=== PATIENT | male | born 1975 ===

== ENCOUNTER → 2022-10-23 | Outpatient (RCR) | payer OTHER | END | disposition home or self-care (01) | LOC: MKS.ESL.OT | DX: Z86.718 Personal history of other venous thrombosis and embolism (principal) ==

== ENCOUNTER → 2022-11-23 | Outpatient (RCR) | payer OTHER | END | disposition home or self-care (01) | LOC: MKS.ESL.OT | DX: M79.89 Other specified soft tissue disorders (principal) ==

== ENCOUNTER 2022-12-14 13:00 | Outpatient (RCR) | payer OTHER | END 2022-12-23 | disposition home or self-care (01) | LOC: MKS.ESL.OT | DX: I82.A11 Acute embolism and thrombosis of right axillary vein (principal); Z87.2 Personal history of diseases of the skin and subcutaneous tissue ==

== ENCOUNTER 2023-07-11 14:29 | Outpatient (RCR) | payer OTHER | END 2023-07-11 14:30 | LOC: MKS.ESL.OT 14:29 | DX: L03.113 Cellulitis of right upper limb (principal); I82.A11 Acute embolism and thrombosis of right axillary vein ==